=== PATIENT | female | born 1965 | race Caucasian/White ===

== ENCOUNTER → 2016-07-06 | Outpatient (CLI) | payer BC ==
[~2016-07-06] MED LIST: ADVIL200 MG PO; ASPIRIN E.C. 8181 MG PO; KLOR-CON20 MEQ PO; LASIX 20MG TABL20 MG PO; LEVAQUIN 750MG750 M1 PO; PREDNISONE20 MG PO; PROAIR HFA0.09 MG/AC IH; RT ADVAIR HFA 1112 G IH; RT SPIRIVA18 MCG IH; SINGULAIR 110 MG/TAB PO
[2016-07-06 17:09] LABS: ADJUSTED CALCIUM 9.6 mg/dL (8.4-10.2); BILIRUBIN,TOTAL 0.6 mg/dL (0.0-1.0); CALCIUM 9.6 mg/dL (8.4-10.2); CREATININE, serum 0.65 mg/dL (0.52-1.25); POTASSIUM 4.2 mmol/L (3.4-5.0); TOTAL PROTEIN 7.4 gm/dL (6.4-8.2)
== END ==
LOC: COL.VAS 06-29 10:15
PROVIDERS: Internal Medicine Pulmonary Disease
DX: I27.2 Other secondary pulmonary hypertension (principal)

== ENCOUNTER → 2016-10-29 | Outpatient (CLI) | payer BC | LOC: SUN.DIA 10-15 11:48 | DX: E11.65 Type 2 diabetes mellitus with hyperglycemia (principal); E66.9 Obesity, unspecified; Z68.42 Body mass index [BMI] 45.0-49.9, adult; Z71.3 Dietary counseling and surveillance; I10 Essential (primary) hypertension; J44.9 Chronic obstructive pulmonary disease, unspecified; I27.2 Other secondary pulmonary hypertension; F17.210 Nicotine dependence, cigarettes, uncomplicated | CPT/HCPCS: G0108 ==

== ENCOUNTER → 2016-11-29 | Outpatient (CLI) | payer BC | LOC: SUN.DIA 12:02 | DX: E11.9 Type 2 diabetes mellitus without complications (principal); I11.9 Hypertensive heart disease without heart failure; E66.9 Obesity, unspecified; Z68.42 Body mass index [BMI] 45.0-49.9, adult; Z71.3 Dietary counseling and surveillance; F17.210 Nicotine dependence, cigarettes, uncomplicated | CPT/HCPCS: G0108 ==

== ENCOUNTER → 2017-01-08 | Outpatient (CLI) | payer BC | LOC: MC.RAD 14:05 | DX: Z12.31 Encounter for screening mammogram for malignant neoplasm of breast (principal) ==

== ENCOUNTER → 2017-03-05 | Outpatient (CLI) | payer BC | LOC: SUN.DIA 11:02 | DX: E11.9 Type 2 diabetes mellitus without complications (principal); I11.9 Hypertensive heart disease without heart failure; E66.9 Obesity, unspecified; Z68.42 Body mass index [BMI] 45.0-49.9, adult; Z71.3 Dietary counseling and surveillance; F17.210 Nicotine dependence, cigarettes, uncomplicated | CPT/HCPCS: G0108 ==

== ENCOUNTER → 2018-03-03 | Outpatient (CLI) | payer BC | LOC: MC.RAD 13:58 | DX: Z12.31 Encounter for screening mammogram for malignant neoplasm of breast (principal) ==